=== PATIENT | female | born 1990 | race Caucasian/White ===

== ENCOUNTER 2016-09-28 07:32 | Inpatient (IN) | payer OTHER ==
[2016-09-28] VITALS (23 sets, daily range): BP systolic 89–121; BP diastolic 49–69
[~2016-09-28] VITALS: Ht 157.5 cm; Wt 55.8 kg
[~2016-09-28 07:32] MED LIST: BUSPIRONE HCL15 MG PO; FLEXERIL10 MG PO; NOHOMEMEDS; ORTHO TRI-CYCL1 EACH PO; PERCOCET 5/31 TABLET PO; ULTRAM50 MG PO
[2016-09-28] MEDS ORDERED: PRENATAL TABLE1 EAC3 PO (08:08)
[2016-09-28 08:54] LABS: MCH 33.9 PG (29.0-34.0); MCHC 35.4 G/DL (30.0-36.0); MCV 95.9 FL (83-99); MEAN PLAT.VOLUME 10.2 uM^3 (9.5-12.4); PLATELET COUNT 183 K/uL (156-360); RBC DIS.WIDTH-CV 13.3 % (11.8-14.6); RED BLOOD COUNT 3.86 M/uL (3.80-5.20); WHITE BLOOD COUNT 11.5 K/uL (4.1-10.2)
[2016-09-28 09:07] LABS: EOSINOPHIL (%) 0.3 % (0-5); IMMATURE GRANULOCYTE (%) 0.8 % (0.0-0.7); IMMATURE GRANULOCYTE COUNT 0.1 K/uL; LYMPHOCYTE COUNT 2.5 K/uL (1.0-2.8); MONOCYTE (%) 5.9 % (3-12); MONOCYTE COUNT 0.7 K/uL (0-0.8); NEUTROPHIL (%) 70.9 % (45-76); NEUTROPHIL COUNT 8.2 K/uL (1.8-6.4)
[2016-09-28 10:23] LABS: POINT-OF-CARE METER ID UU13113692; POINT-OF-CARE USER ID 607291304
[2016-09-28 14:17] LABS: POINT-OF-CARE METER ID UU14188576; POINT-OF-CARE USER ID 607291304
[2016-09-28 16:45] LABS: POINT-OF-CARE METER ID UU14188576; POINT-OF-CARE USER ID 607291304
[2016-09-28 18:36] LABS: POINT-OF-CARE METER ID UU14188576; POINT-OF-CARE USER ID 607291304
[2016-09-28] MEDS ORDERED: IBUPROFEN800 MG PO (20:24)
[2016-09-29 07:05] VITALS: BP 98/55
[2016-09-29 15:25] VITALS: BP 97/54
[2016-09-30 00:20] VITALS: BP 103/57
[2016-09-30 09:05] VITALS: BP 103/48
== END 2016-09-30 13:00 | disposition home or self-care (01) | DRG 775 ==
LOC: LDRP-OP 07:32 → 2WEST 07:33 → LDRP-OP 11-04 22:13
PROVIDERS: Midwife; Obstetrics & Gynecology
PROC: 10E0XZZ Delivery of Products of Conception, External Approach (ICD-10-PCS; principal; 2016-09-28)
PROC: 3E0R3CZ (ICD-10-PCS; principal; 2016-09-28)
PROC: 3E033VJ Introduction of Other Hormone into Peripheral Vein, Percutaneous Approach (ICD-10-PCS; principal; 2016-09-28)
PROC: 0HQ9XZZ Repair Perineum Skin, External Approach (ICD-10-PCS; principal; 2016-09-28)
PROC: 00HU33Z Insertion of Infusion Device into Spinal Canal, Percutaneous Approach (ICD-10-PCS; principal; 2016-09-28)
PROC: 10907ZC Drainage of Amniotic Fluid, Therapeutic from Products of Conception, Via Natural or Artificial Opening (ICD-10-PCS; principal; 2016-09-28)
DX: O24.429 Gestational diabetes mellitus in childbirth, unspecified control (principal); O36.0930 Maternal care for other rhesus isoimmunization, third trimester, not applicable or unspecified; O99.344 Other mental disorders complicating childbirth; F41.8 Other specified anxiety disorders; O70.0 First degree perineal laceration during delivery; O69.1XX0 Labor and delivery complicated by cord around neck, with compression, not applicable or unspecified; O99.334 Smoking (tobacco) complicating childbirth; F17.210 Nicotine dependence, cigarettes, uncomplicated; Z3A.39 39 weeks gestation of pregnancy; Z37.0 Single live birth
CPT/HCPCS: 82948; 83030; 85025; 86850; 86900; 86901; C1755; J2790; J3010; J7120